=== PATIENT | male | born 1985 | race Caucasian/White ===

== ENCOUNTER 2022-12-23 08:28 | Emergency (ER) | payer MEDICAID ==
[~2022-12-23] VITALS: Ht 188 cm; Wt 185.0 kg
[2022-12-23 08:29] VITALS: BP 126/78; PULSE 89; RESP 16; TEMP 98.5; O2SAT 98
[2022-12-23] MEDS ORDERED: mupirocin 2% ointment 22GM TP ONE (08:35)
--- NOTE | 2022-12-23 08:55 | NUR ---
PT NOT TOLERATING EYE IRRIGATION, PER HIS REQUEST DISCONTINUED. WOUND CARE PROVIDED
== END 2022-12-23 09:23 | disposition home or self-care (01) ==
LOC: ER 08:29
DX: S01.81XD Laceration without foreign body of other part of head, subsequent encounter (principal); H10.213 Acute toxic conjunctivitis, bilateral; X58.XXXD Exposure to other specified factors, subsequent encounter
CPT/HCPCS: 99283; A6222; J7030; A6258; A6449

== ENCOUNTER 2025-02-18 14:09 | Emergency (ER) | payer SELFPAY ==
[~2025-02-18] VITALS: Ht 185.4 cm; Wt 77.3 kg
[2025-02-18 14:13] VITALS: BP 111/74; PULSE 89; RESP 18; TEMP 98.1; O2SAT 99
--- NOTE | 2025-02-18 14:47 | Physician Documentation ---
History of Present Illness ~ Chief Complaint: Bite-insect Stated Complaint: LICE Time Seen by MD: 14:33 Primary Medical Doctor: NONE HPI Patient is a very pleasant 39-year-old male that presents to the emergency department for concerns for lice infestation of his scalp hair. Patient reports noting bugs and feeling itchiness on his scalp times several days. Patient denies any other symptoms at this time. Tetanus within 5 years?: No Medication Reconciliation Allergies: Coded Allergies: No Known Allergies (Unverified , 02/18/25) Past Medical History Past Medical History: No Pertinent History Past Surgical History: noncontributory Review of Systems ROS As stated above in the HPI, otherwise all systems are reviewed and negative. Physical Exam Vital Signs: Temperature: 98.1, Source: Temporal, Heart Rate: 89, Respiratory Rate: 18, BP: 111/74, Pulse Oximetry: 99, Weight: 77.270 Oxygen Flow Rate: 0 Physical Exam VITALS: Reviewed and as above. GENERAL: Alert, no apparent distress. SKIN: Warm and dry, no rash NEURO: Oriented x4, No motor or sensory deficit PSYCH: Normal mood and affect, no agitation Progress Results/Orders Results/Orders Vital Signs 02/18/25 14:13 Temp 98.1 Pulse 89 Resp 18 B/P (MAP) 111/74 Pulse Ox 99 O2 Flow Rate 0 Medical Decision Making Additional information obtaine: old records, other Findings Chief Complaint: Head lice infestation History of Present Illness: 39-year-old male presents to the emergency department with several days of scalp itchiness and reports noticing bugs in his hair. Denies fever, rash elsewhere, or other systemic symptoms. Physical Examination: Examination of scalp revealed live lice consistent with active head lice infestation (pediculosis capitis). Medical Decision Making: Diagnosis: Head lice infestation (pediculosis capitis) Risk: Low complexity. This is a benign ectoparasitic infestation that poses no serious health risk but requires treatment to prevent spread and alleviate symptoms. Data Reviewed: Clinical diagnosis based on visualization of live lice on scalp examination. Treatment Plan: Prescribed ejuu-pjs-mrsuswn lice shampoo (permethrin 1% or pyrethrin-based product) as first-line therapy Patient instructed to apply product to dry hair, saturating the scalp and working outward to the ends of the hair, leave on for 10 minutes, then rinse thoroughly Hair should not be shampooed for 24-48 hours after application Second application required in 7-9 days to kill newly hatched lice from nits that survived initial treatment If live lice are still present after completing both treatments, patient should follow up with primary care provider for alternative therapy Environmental Measures: Wash all clothing, bedding, and linens in hot water and dry on high heat for at least 20 minutes Items that cannot be washed should be sealed in a plastic bag for 2 weeks Check household members for lice and treat if active infestation is found Disposition: Discharged home in stable condition Follow-up: Follow up with primary care provider as needed Return to emergency department if symptoms worsen, new concerning symptoms develop, or if live lice persist after completing both treatments Patient Education: Patient counseled on proper application technique, importance of retreatment, and environmental decontamination to prevent reinfestation. Patient verbalized understanding of discharge instructions. Differential Dx:Considerations: Include: Abrasion, Allergic reaction, Anaphylaxis, Cellulitis, Contusion, Fracture, Hematoma, Insect envenomation, Laceration, Neurovascular injury, Punture wound, Retained foreign body, Urticaria, Other Departure Disposition: 01 HOME / SELF CARE / HOMELESS Impression: Primary Impression: Insect bites Additional Impression: Lice Discharge Instructions: Insect Bite, Adult, [id number], Lice, Adult Additional Instructions: Your Diagnosis You have been diagnosed with head lice (also called pediculosis capitis). Head lice are small bugs that live on the scalp and in hair. They are very common and can affect anyone, regardless of cleanliness. Having lice does not mean you are dirty. Your Treatment You have been prescribed an echk-ydz-qxnqjyj lice shampoo (permethrin 1% or pyrethrin-based product) to steel pickler at the pharmacy. This is the recommended first-line treatment for head lice. How to Use the Lice Shampoo Follow these steps carefully for the treatment to work: Before applying the shampoo: Wash your hair with regular shampoo (do not use conditioner or a shampoo with conditioner, as this can make the treatment less effective) Rinse with water and towel dry so hair is damp but not wet Applying the treatment: Shake the bottle well Apply enough product to completely saturate your hair and scalp, starting at the back of the neck and behind the ears Keep the product out of your eyes (use a washcloth or towel to protect them) Leave the product on for exactly 10 minutes, but no longer After treatment: Rinse thoroughly with warm water Towel dry and comb out tangles Do not wash your hair with shampoo for 24-48 hours after treatment Removing nits (lice eggs): Use the special fine-toothed comb that comes with the product Comb through small sections of damp hair from the scalp to the ends Clean the comb frequently and throw away removed nits in a sealed plastic bag Important: Second Treatment Required You must repeat the treatment in 7-9 days. This second application is necessary to kill newly hatched lice from eggs that survived the first treatment. If you see live lice after completing both treatments, contact your primary care provider for a different medication. Preventing Reinfestation To prevent lice from coming back: Wash all clothing, bedding, towels, and linens in hot water and dry on high heat for at least 20 minutes Items that cannot be washed (such as stuffed animals or certain clothing) should be sealed in a plastic bag for 2 weeks Check all household members for lice and treat anyone who has them Vacuum furniture and floors where the infested person sat or lay Do not share staley, brushes, hats, or hair accessories What You Don't Need to Do You do not need to: Fumigate your home or use lice sprays on furniture Throw away personal items Keep your child out of school once treatment has started Follow-Up Care Follow up with your primary care provider as needed Return to the emergency department if: Live lice are still present after completing both treatments (at 7-9 days) Your symptoms get worse You develop new concerning symptoms such as severe scalp irritation, rash, or signs of infection Questions? If you have questions about using the lice shampoo or concerns about your treatment, contact your primary care provider. Referrals: NO PRIMARY CARE PROVIDER (PCP) Prescriptions Piperonyl Butoxide/Pyrethrins (Lice Killing Shampoo) 4 %-0.33 % Shampoo 2 APPLICATOR .SEE ORDER ONCE for 1 Day, #2 AHFU 0 Refills Prov: DOMINIQUE LANEP 02/18/25 Education Educated: Patient Educated regarding: diagnosis, treatment, need for follow up Signature Scribe Signature: A Attestation: Scribed for Dominique Lane by DHARA Bishop . 02/18/25 14:[address] Feb 18, 2025 14:47
[2025-02-18] MEDS ORDERED: PIPE118S24 (14:49)
== END 2025-02-18 14:53 | disposition home or self-care (01) ==
LOC: ER 14:09
DX: S00.06XA Insect bite (nonvenomous) of scalp, initial encounter (principal); B85.0 Pediculosis due to Pediculus humanus capitis; W57.XXXA Bitten or stung by nonvenomous insect and other nonvenomous arthropods, initial encounter; Y93.89 Activity, other specified; Y92.89 Other specified places as the place of occurrence of the external cause; Y99.8 Other external cause status
CPT/HCPCS: 99282